=== PATIENT | female | born 1985 | race Hispanic/Latino ===

== ENCOUNTER 2019-11-07 08:58 | Outpatient (CLI) | payer BC | END 2019-11-07 08:59 | disposition home or self-care (01) | LOC: CTENTCT 08:58 | PROVIDERS: ATTEND Student in an Organized Health Care Education/Training Program | DX: J32.8 Other chronic sinusitis (principal) | CPT/HCPCS: 70486 ==

== ENCOUNTER 2022-11-25 08:02 | Outpatient (CLI) | payer BC | END 2022-11-25 08:03 | disposition home or self-care (01) | LOC: SCSMRI 08:02 | PROVIDERS: ATTEND Nurse Practitioner Family | DX: M54.16 Radiculopathy, lumbar region (principal) | CPT/HCPCS: 72148 ==